=== PATIENT | female | born 1970 | race African-American/Black ===

== ENCOUNTER 2021-01-21 21:21 | Emergency (ER) | payer OTHER ==
[~2021-01-21] VITALS: Ht 167.6 cm; Wt 80.9 kg
--- NOTE | 2021-01-21 21:31 | PHYS DOC ---
Past History Past Medical History: Arthritis, Diabetes, Hypertension General Adult HPI: HPI: "..This Lt knee has been hurting me...now for a week and half....I sabiha twisted when I was moving a patient.. 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 Patient states she has had some generalized arthritic complaints particularly in both knees last several years. Patient does have a significant medical history of diabetes, hypertension, tobacco use, and obesity.. Patient denies any fever or chills. Patient localizes pain to patellar area of left knee.. Patient does have some suprapatellar edema. Patient is able to do straight leg lift. Distal neurovascular is equal to right leg. Patient does have pain with flexion of right knee and with walking. No history immunosuppression. No history of fever or chills. No history of severe ill contacts but is involved in home health care. Patient normally follows with Merlyn Morris for care. Review of Systems: Review of Systems: Constitutional: Denies fever or chills Eyes: Denies change in visual acuity HENT: Denies nasal congestion or sore throat Respiratory: Denies cough or shortness of breath Cardiovascular: Denies chest pain or edema GI: Denies abdominal pain, nausea, vomiting, bloody stools or diarrhea : Denies dysuria Musculoskeletal: Complains of left knee pain and edema Integument: Denies rash Neurologic: Denies headache, focal weakness or sensory changes Endocrine: Denies polyuria or polydipsia Lymphatic: Denies swollen glands Psychiatric: Denies depression or anxiety Family History: Family History: Diabetes and hypertension Current Medications: Current Meds: See nursing for home meds Allergies: Allergies: No known drug allergies Physical Exam: PE: Constitutional: Moderate acute distress, non-toxic appearance. [] HENT: Normocephalic, atraumatic, bilateral external ears normal, oropharynx moist, no oral exudates, nose normal. [] Eyes: PERRLA, EOMI, conjunctiva normal, no discharge. [] Neck: Normal range of motion, no tenderness, supple, no stridor. [] Cardiovascular:Heart rate regular rhythm, no murmur [] Lungs & Thorax: Bilateral breath sounds clear to auscultation [] Abdomen: Bowel sounds normal, soft, no tenderness, no masses, no pulsatile masses. Obese Skin: Warm, dry, no erythema, no rash. [] Back: No tenderness, no CVA tenderness. [] Extremities: No tenderness, no cyanosis, no clubbing, ROM intact, no edema. [] Except findings in left knee as per HPI Neurologic: Alert and oriented X 3, normal motor function, normal sensory function, no focal deficits noted. [] Psychologic: Affect anxious, judgement normal, mood normal. [] EKG: EKG: [] Radiology/Procedures: Radiology/Procedures: [][place] [id number] IMAGING REPORT Signed PATIENT: IVELISSE KRISHNA AACCOUNT: [id number] : 1970 LOCATION: ER AGE: 50 SEX: F EXAM STATUS: REG ER ORD. PHYSICIAN: HERBER SALINAS MD REASON: knee pain, repetitive heavy lifting & twisting PROCEDURE: KNEE LEFT 4V Exam: Left knee 4 views INDICATION: Knee pain TECHNIQUE: Frontal, lateral, oblique and sunrise views of the left knee Comparisons: None FINDINGS: Small suprapatellar effusion. Bone mineralization is normal. No acute or healed fractures. Joint spaces are well-maintained. IMPRESSION: Small suprapatellar effusion without underlying osseous abnormality identified. Electronically signed by: Leda Montano MD (01/21/2021 10:05 PM) [facility] DICTATED AND SIGNED BY: LEDA MONTANO MD DATE: 01/21/212203 CC: HERBER SAILNAS MD; JOHN MORRIS ~MTH0 0 Heart Score: C/O Chest Pain: N/A Risk Factors: Risk Factors: DM, Current or recent (<one month) smoker, HTN, HLP, family history of CAD, obesity. Risk Scores: Score 0 - 3: 2.5% MACE over next 6 weeks - Discharge Home Score 4 - 6: 20.3% MACE over next 6 weeks - Admit for Clinical Observation Score 7 - 10: 72.7% MACE over next 6 weeks - Early Invasive Strategies Course & Med Decision Making: Course & Med Decision Making Pertinent Labs and Imaging studies reviewed. (See chart for details) Patient to take Tylenol and ibuprofen for pain. Marked pain may take Vicoprofen up to 4 times a day. Patient to follow-up primary care. Patient is ice pack as needed. Patient wear Yury wrap. Distal neurovascular was intact after appli cation Yury wrap. Patient to have repeat x-ray in 2 weeks if no improvement. Consider follow-up with orthopedics. Return if any concerns. May be candidate for aspiration of bursa to evaluate for pseudogout and gout at some point. Impression:. 1. Left knee sprain strain 2. Left suprapatellar bursa edema and inflammation 3. History of diabetes 4. History of hypertension [] Dragon Disclaimer: Dragon Disclaimer: This electronic medical record was generated, in whole or in part, using a voice recognition dictation system. Departure Departure: Referrals: JOHN MORRIS (PCP) Scripts Hydrocodone/Ibuprofen (HYDROCODONE-IBUPROFEN 7.5-200 ) 1 Each Tablet 1 TAB PO PRN Q6HRS PRN for PAIN, #30 TAB 0 Refills Prov: HERBER SALINAS MD 01/21/21 [employer]mi[employer] Disclaimer This chart was dictated in whole or in part using Voice Recognition software in a busy, high-work load, and often noisy Emergency Department environment. It may contain unintended and wholly unrecognized errors or omissions. HERBER SALINAS MD Jan 21, 2021 21:31
[2021-01-21 21:34] VITALS: BP 149/74
--- NOTE | 2021-01-21 22:07 | RAD ---
Exam: Left knee 4 views INDICATION: Knee pain TECHNIQUE: Frontal, lateral, oblique and sunrise views of the left knee Comparisons: None FINDINGS: Small suprapatellar effusion. Bone mineralization is normal. No acute or healed fractures. Joint spac es are well-maintained. IMPRESSION: Small suprapatellar effusion without underlying osseous abnormality identified. Electronically signed by: Leda Jain MD (01/21/2021 10:05 PM) [facility]
[2021-01-21] MEDS ORDERED: HYDR-1179 PO (22:22)
== END 2021-01-21 22:55 | disposition home or self-care (01) ==
LOC: ER 21:21
DX: S83.92XA Sprain of unspecified site of left knee, initial encounter (principal); E11.9 Type 2 diabetes mellitus without complications; I10 Essential (primary) hypertension; X50.9XXA Other and unspecified overexertion or strenuous movements or postures, initial encounter; Y93.89 Activity, other specified; Y92.89 Other specified places as the place of occurrence of the external cause; Y99.8 Other external cause status
CPT/HCPCS: 73564; 99283